=== PATIENT | male | born 1950 | race Asian ===

== ENCOUNTER → 2017-10-31 | Outpatient (CLI) | payer BC, MEDICARE | LOC: COL.RAD 07:15 | DX: K76.89 Other specified diseases of liver (principal); R53.83 Other fatigue; R76.8 Other specified abnormal immunological findings in serum; R60.9 Edema, unspecified; Z90.49 Acquired absence of other specified parts of digestive tract; Z86.19 Personal history of other infectious and parasitic diseases ==

== ENCOUNTER → 2018-11-03 | Outpatient (CLI) | payer BC | LOC: COL.RAD 12:19 | DX: K57.30 Diverticulosis of large intestine without perforation or abscess without bleeding (principal); Z90.49 Acquired absence of other specified parts of digestive tract | CPT/HCPCS: Q9967 ==

== ENCOUNTER → 2019-08-11 | Outpatient (CLI) | payer BC ==
[2019-08-11 11:24] LABS: BASO % 0.7 % (0.0-2.0); EOS # 0.1 (0.0-0.7); EOS % 1.7 % (0-4.0); GRAN # 3.5 (1.4-6.5); GRAN % 59.1 % (42.2-75.2); HEMATOCRIT 51.6 % (42.0-52.0); HEMOGLOBIN 16.4 g/dl (13.5-18.0); LYMPH # 1.7 (1.2-3.4); LYMPH % 28.7 % (20.0-51.0); MEAN CELL VOLUME 84 fl (80.0-100.0); MEAN CORPUSCULAR HEMOGLOBIN 27 pg (27.0-31.0); MEAN CORPUSCULAR HGB CONC 32 g/dl (33.0-37.0); MEAN PLATELET VOLUME 10.8 fl (7.4-10.4); MONO # 0.6 (0.1-0.6); MONO % 9.5 % (1.7-9.3); PLATELET COUNT 186 K/mm3 (130-400); RED BLOOD COUNT 6.15 M/mm3 (4.20-5.60); REDCELL DISTRIBUTION WIDTH-CV 13.7 % (11.5-14.5)
[2019-08-11 11:36] LABS: ALBUMIN 4.5 gm/dL (3.5-5.0); BILIRUBIN,TOTAL 0.7 mg/dL (0.0-1.0); C-REACTIVE PROTEIN 0.7 mg/dL (0.0-0.9); CALCIUM 9.4 mg/dL (8.4-10.2); CREATININE, serum 1.07 (0.66-1.25); POTASSIUM 4.5 mmol/L (3.4-5.0); TOTAL PROTEIN 8.5 gm/dL (6.4-8.2)
[2019-08-11 11:43] LABS: ERYTHROCYTE SEDIMENTATION RATE 22 mm/hr (0-30)
== END ==
LOC: COL.LAB 10:29 → COL.RAD 10:29
PROVIDERS: Family Medicine
DX: R06.02 Shortness of breath (principal); R07.9 Chest pain, unspecified; R50.9 Fever, unspecified

== ENCOUNTER → 2021-07-17 | Outpatient (CLI) | payer BC | LOC: COL.RAD 11:22 | DX: R94.6 Abnormal results of thyroid function studies (principal) | CPT/HCPCS: A9516 ==

== ENCOUNTER 2022-08-03 13:17 | Observation (INO) | payer BC ==
[~2022-08-03] VITALS: Ht 177.8 cm; Wt 90.9 kg
[2022-08-03] MEDS ORDERED: PRINZIDE 25 MG-1 TAB PO (18:07)
[2022-08-03] MEDS ORDERED: GLUCOPHAGE500 MG/TAB PO (18:07)
[2022-08-03] MEDS ORDERED: NORVASC 10MG10 MG PO (18:07)
[2022-08-03] MEDS ORDERED: ASPIRIN 81M81 MG/TA2 PO (18:08)
[2022-08-03 18:15] VITALS: BP 162/79; PULSE 67; TEMP 97.8
--- NOTE | 2022-08-03 18:30 | NUR ---
Pt arrived from the unit from ED. Pt is alert and oriented with minimal complaints of pain, denies the need for pain medication at this time. Oriented pt to the room and how to order meals. Discussed plan of care. Dr Gold just going in to see pt. Pt was able to pivot over to the bed from the ED cart. Admission completed
[2022-08-03 20:18] VITALS: BP 160/74; PULSE 71; TEMP 97.9
[2022-08-04 00:38] VITALS: BP 148/75; PULSE 65; TEMP 98.4
--- NOTE | 2022-08-04 00:39 | NUR ---
SHIFT NURSING ASSESSMENT COMPLETED AT 19:30. DR. SIMPSON AT BEDSIDE TO ASSESS THE PATIENT AND DISCUSS THE PLAN OF CARE. NO S/S OF DISTRESS NOTED. PERSONAL BELONGINGS WITHIN REACH OF THE PATIENT. PATIENT REMINDED TO CALL FOR ASSISTANCE WHEN NEEDING TO GET OUT OF BED TO THE BATHROOM. THE PATIENT VOICED UNDERSTANDING. CALL LIGHT WITHIN REACH. BED IN LOWEST POSITION.
[2022-08-04 03:44] VITALS: BP 117/52; PULSE 62; TEMP 99.1
[2022-08-04 06:38] LABS: BASO % 0.7 % (0.0-2.0); EOS # 0.1 K/mm3 (0.0-0.7); EOS % 2.2 % (0.0-4.0); GRAN % 54.7 % (42.2-75.2); HEMOGLOBIN 15.6 g/dl (13.5-18.0); LYMPH # 1.8 K/mm3 (1.2-3.4); LYMPH % 32.3 % (20.0-51.0); MEAN CELL VOLUME 82 fl (80.0-100.0); MEAN CORPUSCULAR HEMOGLOBIN 27 pg (27-31); MEAN CORPUSCULAR HGB CONC 33 g/dl (33.0-37.0); MEAN PLATELET VOLUME 11.8 fl (7.4-10.4); MONO # 0.5 K/mm3 (0.1-0.6); MONO % 9.7 % (1.7-9.3); PLATELET COUNT 203 K/mm3 (130-400); RED BLOOD COUNT 5.76 M/mm3 (4.20-5.60); REDCELL DISTRIBUTION WIDTH-CV 13.7 % (11.5-14.5)
[2022-08-04 06:58] LABS: ALBUMIN 3.5 gm/dL (3.4-4.8); BILIRUBIN,TOTAL 1.1 mg/dL (0.2-1.2); CALCIUM 9.5 mg/dL (8.4-10.2); CREATININE, serum 0.92 mg/dL (0.72-1.25); MAGNESIUM 2.1 mg/dL (1.6-2.6); POTASSIUM 4.3 mmol/L (3.5-4.5); TOTAL PROTEIN 8.6 gm/dL (6.2-8.1)
[2022-08-04 07:45] LABS: ERYTHROCYTE SEDIMENTATION RATE 16 mm/hr (0-30)
[2022-08-04 08:42] VITALS: BP 147/93; PULSE 84; TEMP 97.7
--- NOTE | 2022-08-04 10:47 | NUR ---
SW met with patient to complete intake and discuss discharge plan. Patient reports that the currently lives at home alone in [place]. 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 Patient reports that he fell at his office at work and this is a work comp case. Prior to fall, he was fully independent with his ADL's and did not utilize any DME to assist with mobility. Patient has no home oxygen needs. PCP is and he utilizes [facility] in for prescriptions. Patient reports that he does have a DPOA- established that lists his employee benefits attorney as his agent, however he does have a child in [place] and a child in [place]. Informed patient that at this time, PT is recommending home with home health. Patient is provided with the [email or web address].gov list of home health agencies and [facility] picked [facility]. Orders faxed. Patient will also need a FWW going home. Signed DME orders faxed to [facility]. Discharge plan: [facility] with [facility] .
--- NOTE | 2022-08-04 11:10 | NUR ---
PATIENT ALERT AND ORIENTED X4. VSS. PATIENT HERE FOR LEFT HIP PAIN, VERTEBRAL FX. PATIENT REPORTS PAIN 2/10, DENIES NEED FOR PAIN MEDICAITON. ASSESSMENT PERFORMED. IV TO RIGHT HAND FLUSHES WELL. ASSESSMENT PERFORMED. AM MEDS ADMINISTERED. PATIENT RESTING IN CHAIR WITH CALL LIGHT NEAR.
[2022-08-04 12:11] VITALS: BP 133/64; PULSE 78; TEMP 98.8
[2022-08-04] MEDS ORDERED: NORCO 325 MG-51 TAB PO (12:36)
--- NOTE | 2022-08-04 13:37 | NUR ---
DISCHARGE INSTRUCTIONS PROVIDED. PATIENT EDUCATION GIVEN. FOLLOW UP APPOINTMENTS DISCUSSED. IV DC'D. PATIENT DENIES ANY QUESTIONS OR CONCERNS. PATIENT ESCORTED OUT VIA WHEELCHAIR.
--- NOTE | 2022-08-06 09:18 | NUR ---
wool batting worker contacted Debbie at [facility] and refaxed orders and referral. Awaiting screening and if home health can accept.
--- NOTE | 2022-08-09 08:57 | NUR ---
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 Patient is unable to tell me who is HR is or provide me with a contact name/phone number. Patient did have claim information on his email that this SW requested he forward to me to analize for information. Educated the patient that if i cannot get contact for his HR contact, he will have to hire a private duty career guidance counselor service and i will send information to him.
== END 2022-08-04 13:45 | disposition home health service (06) ==
LOC: COL.ER 13:17 → SURG 14:51 → EDBEDREQ 17:34 → SURG 08-04 13:45
PROVIDERS: ADMIT Internal Medicine
DX: S32.018A Other fracture of first lumbar vertebra, initial encounter for closed fracture (principal); M89.9 Disorder of bone, unspecified; S72.051A Unspecified fracture of head of right femur, initial encounter for closed fracture; M54.9 Dorsalgia, unspecified; W19.XXXA Unspecified fall, initial encounter; Y93.9 Activity, unspecified; Y92.9 Unspecified place or not applicable; Z79.82 Long term (current) use of aspirin; Z85.46 Personal history of malignant neoplasm of prostate
CPT/HCPCS: G0378

== ENCOUNTER 2022-09-25 12:22 | Day surgery (SDC) | payer BC ==
[~2022-09-25] VITALS: Ht 177.8 cm; Wt 92.3 kg
[~2022-09-25 12:22] MED LIST: ASPIRIN 81M81 MG/TA2 PO; ASPIRIN E.C. 8181 MG PO; ELIQUIS 5MG PO; GLUCOPHAGE500 MG/TAB PO; NORCO 325 MG-51 TAB PO; NORVASC 10MG10 MG PO; PRINZIDE 25 MG-1 TAB PO
[2022-09-25 13:52] VITALS: BP 158/72; PULSE 73
[2022-09-25 14:51] VITALS: BP 103/60; PULSE 69; TEMP 98
[2022-09-25 15:00] VITALS: BP 110/65; PULSE 73
[2022-09-25 15:15] VITALS: BP 117/68; PULSE 67
[2022-09-25 15:30] VITALS: BP 140/67; PULSE 66
--- NOTE | 2022-09-25 15:45 | NUR ---
Pt returned via cart to [place] [id number] from OR at 1451. Pt drowsy and tearful. VSS-see flowsheet. Pt denied pain, c/o being awakened from being in "a really good place." Pts dressing remained c/d/i to x2 surgical sites. Tolerated oral intake. IV removed, pressure dressing applied. Discharge teaching completed, pt verbalized understanding. Taken via wheelchair to private vehicle for Brian durham, to drive pt home.
== END 2022-09-25 15:45 | disposition home or self-care (01) ==
LOC: SDCO 12:22
DX: C24.0 Malignant neoplasm of extrahepatic bile duct (principal); C77.9 Secondary and unspecified malignant neoplasm of lymph node, unspecified; Z87.891 Personal history of nicotine dependence
CPT/HCPCS: C1788; J0690; J2704; J3010